=== PATIENT | female | born 1975 | race Asian ===

== ENCOUNTER 2017-06-04 19:24 | Emergency (ER) | payer MEDICAID ==
[~2017-06-04] VITALS: Ht 157.5 cm; Wt 70.0 kg
[2017-06-04 19:26] VITALS: Ht 157.5 cm; Wt 70.0 kg
[2017-06-04] MEDS ORDERED: SOD CHLORIDE 0.9% 1,000 ML IV STA (19:33)
[2017-06-04] MEDS ORDERED: LORAZEPAM 2 MG INJ IV ONE (20:00)
[2017-06-04 20:02] LABS: BASOPHIL # 0.1 10^3/ul (0.0-0.1); BASOPHILS % 0.6 % (0.0-2.0); EOSINOPHILS # 0.1 10^3/ul (0.0-0.5); HEMATOCRIT 34.2 % (37.0-47.0); HEMOGLOBIN 10.5 g/dl (12.0-16.0); LYMPHOCYTES # 1.8 10^3/ul (0.8-2.9); LYMPHOCYTES % 21.3 % (15.0-51.0); MEAN CORPUSCULAR HEMOGLOBIN 23.6 pg (29.0-33.0); MEAN CORPUSCULAR HGB CONC 30.7 g/dl (32.0-37.0); MEAN CORPUSCULAR VOLUME 76.9 fl (82.0-101.0); MEAN PLATELET VOLUME 9.7 fl (7.4-10.4); MONOCYTE # 0.7 10^3/ul (0.3-0.9); MONOCYTES % 8.5 % (0.0-11.0); NEUTROPHIL # 5.6 10^3/ul (1.6-7.5); NEUTROPHILS % 67.9 % (39.0-77.0); PLATELET COUNT 307 10^3/UL (140-415); RED BLOOD COUNT 4.45 10^6/ul (4.20-5.40); RED CELL DISTRIBUTION WIDTH 13.7 % (11.5-14.5); WHITE BLOOD COUNT 8.3 10^3/ul (4.8-10.8)
[2017-06-04 20:22] LABS: ALANINE AMINOTRANSFERASE 39 IU/L (13-69); ALBUMIN 4.1 g/dl (3.3-4.9); ALBUMIN/GLOBULIN RATIO 1.05; ALKALINE PHOSPHATASE 81 IU/L (42-121); ANION GAP 12 (8-16); ASPARTATE AMINO TRANSFERASE 26 IU/L (15-46); BLOOD UREA NITROGEN 10 mg/dl (7-20); CALCIUM 9.7 mg/dl (8.4-10.2); CARBON DIOXIDE 26 mmol/L (21-31); CHLORIDE 104 mmol/L (97-110); CREATININE 0.67 mg/dl (0.44-1.00); GLUCOSE 173 mg/dl (70-220); POTASSIUM 3.7 mmol/L (3.5-5.1); SODIUM 138 mmol/L (135-144)
[2017-06-04 20:34] LABS: TROPONIN-I < 0.012 ng/ml (0.00-0.12)
[2017-06-04 20:54] VITALS: BP 125/79; PULSE 81; RESP 20; TEMP 98.7
--- NOTE | 2017-06-04 22:44 | ERD ---
ER Documentation Chief Complaint Date/Time DATE: 06/04/17 TIME: 22:40 Chief Complaint PALPITATIONS HPI 41-year-old woman brought in as a code green after visiting her upstairs in the hospital. She complained of palpitations as well as feeling very anxious. Patient does have a history of anxiety disorder as well as mitral valve prolapse and previous palpitations. She denies loss of consciousness, no chest pain or shortness of breath, no fevers or chills, no calf or leg swelling, no suicidal homicidal ideation ROS All systems reviewed and are negative except as per history of present illness. Allergies Allergies: Coded Allergies: No Known Allergy (Unverified , 06/04/17) PMhx/Soc Anxiety disorder, MVP History of Surgery: No Hx Respiratory Disorders: No Hx Cardiac Disorders: Yes (mitral valve prolapse, palpitations) Hx Psychiatric Problems: No Hx Miscellaneous Medical Probl: Yes (gerd, ovarian cysts, endomitriosis) Hx Alcohol Use: Yes Hx Substance Use: No Hx Tobacco Use: No Smoking Status: Former smoker FmHx Family History: No diabetes Physical Exam Vitals Vital Signs Date Time Temp Pulse Resp B/P Pulse Ox O2 Delivery O2 Flow Rate FiO2 06/04/17 20:54 98.7 81 20 125/79 100 Room Air 06/04/17 19:30 98.7 90 20 123/89 94 Room Air 06/04/17 19:26 98.7 86 20 130/115 96 Physical Exam GENERAL: Well-developed, well-nourished, well-hydrated, anxious HEENT: Moist mucous membranes, pink conjunctiva, no cervical spine tenderness or step-off deformities, no goiter, no jaundice or icterus, extraocular movements intact without pain. No submandibular induration, and no pharyngeal erythema NEURO: Alert and oriented 3, cranial nerves II through XII intact bilaterally, pupils equal round reactive to light, no focal deficits or facial asymmetry, sensation intact distally Strength 5/5 in upper and lower extremities bilaterally CARDIAC: Regular rate and rhythm, no murmurs rubs or gallops LUNGS: Clear bilaterally no wheezing crackles or stridor ABDOMEN: Soft nontender, no guarding, no rigidity, no rebound, no psoas sign no obturator sign. Normoactive bowel sounds SKIN: Warm and dry to touch, no abrasions, contusions, or hematomas, no lacerations, no ecchymosis, no target lesions, and without ulcers EXTREMITIES: No clubbing cyanosis or edema, calves are bilaterally symmetrical, no Homans sign, no popliteal cord sign. Distal pulses equal and bilateral PSYCH: Anxious Result Diagram: 06/04/17194206/04/171942 Results 24 hrs Laboratory Tests Test 06/04/17 19:43 White Blood Count 8.310^3/ul Red Blood Count 4.4510^6/ul Hemoglobin 10.5g/dl Hematocrit 34.2% Mean Corpuscular Volume 76.9fl Mean Corpuscular Hemoglobin 23.6pg Mean Corpuscular Hemoglobin Concent 30.7g/dl Red Cell Distribution Width 13.7% Platelet Count 21676^3/UL Mean Platelet Volume 9.7fl Neutrophils % 67.9% Lymphocytes % 21.3% Monocytes % 8.5% Eosinophils % 1.0% Basophils % 0.6% Nucleated Red Blood Cells % 0.0/100WBC Neutrophils # 5.610^3/ul Lymphocytes # 1.810^3/ul Monocytes # 0.710^3/ul Eosinophils # 0.110^3/ul Basophils # 0.110^3/ul Nucleated Red Blood Cells # 0.010^3/ul Sodium Level 138mmol/L Potassium Level 3.7mmol/L Chloride Level 104mmol/L Carbon Dioxide Level 26mmol/L Anion Gap 12 Blood Urea Nitrogen 10mg/dl Creatinine 0.67mg/dl Glucose Level 173mg/dl Calcium Level 9.7mg/dl Total Bilirubin 0.0mg/dl Direct Bilirubin 0.00mg/dl Indirect Bilirubin 0.0mg/dl Aspartate Amino Transf (AST/SGOT) 26IU/L Alanine Aminotransferase (ALT/SGPT) 39IU/L Alkaline Phosphatase 81IU/L Troponin I < 0.012ng/ml Total Protein 8.0g/dl Albumin 4.1g/dl Globulin 3.90g/dl Albumin/Globulin Ratio 1.05 Lipase 165U/L Current Medications Medications (Trade) Dose Ordered Sig/[facility] Route PRN Reason Start Time Stop Time Status Last Admin Dose Admin Sodium Chloride (NS) 1,000 ml @ 1,000 mls/hr Q1H STAT IV 06/04/17 19:33 06/04/17 20:32 DC 06/04/17 20:17 Lorazepam (Ativan) 0.5 mg ONCE ONCE IV 06/04/17 20:00 06/04/17 20:01 DC 06/04/17 20:17 [facility] IV line was established 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 Patient was afebrile. EKG performed, read by me: 77 bpm, normal sinus rhythm, normal axis, no acute ST segment changes, narrow QRS complex, with good R-wave progression in precordial leads. I administered 1 L normal saline intravenously and lorazepam 0.5 mg IV 1 with good effect. One AP view of the chest performed, read by me reveals no acute infiltrates, normal mediastinum, sharp costophrenic and cardiac borders, no air under the diaphragm. Otherwise unremarkable chest x-ray. CBC and electrolytes are normal, liver function tests are normal, troponin was negative. Differential diagnoses considered, included but not limited to acute coronary syndrome, pulmonary embolism, aortic dissection, abdominal aortic aneurysm, sepsis, stroke, meningitis, encephalitis, pneumonia, appendicitis, cholecystitis , bowel obstruction, pyelonephritis, nephrolithiasis, cystitis, as well as metabolic, hematologic, and electrolyte abnormalities. As well as abscess, cellulitis, fractures, and dislocations. Patient feels much better at this time, and vital signs are normal, symptoms have improved. I did give strict instructions to return to the ED if symptoms continue or worsen, patient will otherwise follow-up with primary care physician. Patient understood instructions and agreed to plan. Disclaimer: Inadvertent spelling and grammatical errors are likely due to EHR/ dictation software use and do not reflect on the overall quality of patient care. Also, please note that the electronic time recorded on this note does not necessarily reflect the actual time of the patient encounter. Departure Diagnosis: Primary Impression: Palpitations Additional Impression: Anxiety in acute stress reaction Condition: Good Patient Instructions: Anxiety Reaction, Palpitations JADE DIAL MD Jun 04, 2017 22:44
== END 2017-06-04 20:54 | disposition home or self-care (01) ==
LOC: E/R 19:24
DX: R00.2 Palpitations (principal); F43.8 Other reactions to severe stress; Z87.891 Personal history of nicotine dependence
CPT/HCPCS: 36415; 80053; 83690; 84484; 85025; 93005; 96374; J2060; J7030; Z7502

== ENCOUNTER 2017-06-10 04:25 | Emergency (ER) | payer MEDICAID ==
[~2017-06-10] VITALS: Ht 162.6 cm; Wt 71.0 kg
[2017-06-10 04:29] VITALS: Ht 162.6 cm; Wt 71.0 kg
[2017-06-10 04:52] LABS: URINE BLOOD (Dip) POC Negative (NEGATIVE)
[2017-06-10 04:55] VITALS: BP 131/90; PULSE 79; RESP 16; TEMP 98
[2017-06-10] MEDS ORDERED: ONDANSETRON (ODT) 4 MG TAB ODT STA (04:55)
[2017-06-10] MEDS ORDERED: FAMOTIDINE 20 MG TAB PO STA (04:55)
[2017-06-10] MEDS ORDERED: DICYCLOMINE 10 MG CAP PO ONE (05:00)
--- NOTE | 2017-06-10 05:01 | ERD ---
ER Documentation Chief Complaint Date/Time DATE: 06/10/17 TIME: 04:58 Chief Complaint mid abd pain x 2 days HPI Patient is a 41-year-old female who presents with gradual onset, intermittent, poorly localized abdominal pain since yesterday. She reports that she made canned salmon with onions and left it on the counter while she was visiting a family member in the hospital, and when she returned it appeared spoiled, but she ate some of it anyways. Shortly after she started developing abdominal discomfort and nausea. She denies vomiting. She reports having loose stools. She denies blood or mucus in stool. She reports feeling slightly cold in the morning, but did not measure her temperature. She denies dysuria. She states that the pain comes and goes and is not always in the same location, but is felt diffusely. ROS All systems reviewed and are negative except as per history of present illness. Medications Home Meds Active Scripts Dicyclomine Hcl* (Bentyl*) 10 Mg Capsule, 10 MG PO TID, #20 CAP Prov:NICOLAS KINSEY MD 06/10/17 Reported Medications [place]-3/Dha/Epa/Fish Oil (Fish Oil 500 mg Softgel) 1 Each Capsule, 1 EACH PO, CAP 06/10/17 Cinnamon Bark (Cinnamon) 500 Mg Capsule, 500 MG PO, CAP 06/10/17 Turmeric (Curcumin) 1 Gm Powder, 1 GM MC 06/10/17 Turmeric (TURMERIC) 1 Gm Powder, 1 GM MC 06/10/17 Acetaminophen* (Acetaminophen*) 500 MG Extra Strength Tablet, 500 MG PO Q4H Y for PAIN AND OR ELEVATED TEMP, TAB 06/10/17 Aspirin Ec (Aspir 81) 81 Mg Tablet.dr, 81 MG PO DAILY, #30 TAB 06/10/17 Omeprazole* (Omeprazole*) 20 Mg Capsule.dr, 20 MG PO BID, #60 CAP 06/10/17 Escitalopram Oxalate* (Escitalopram Oxalate*) 10 Mg Tablet, 10 MG PO DAILY, #30 TAB 06/10/17 Propranolol Hcl* (Propranolol Hcl*) 10 Mg Tablet, 10 MG PO QID for PALPITATION, TAB 06/10/17 Discontinued Scripts Famotidine* (Famotidine*) 20 Mg Tablet, 20 MG PO DAILY, #30 TAB Prov:NICOLAS KINSEY MD 10/6/17 Allergies Allergies: Coded Allergies: No Known Allergy (Unverified , 06/10/17) PMhx/Soc Past medical history: GERD, Mitral valve prolapse, anxiety Past surgical history: Myomectomy, ovarian cystectomy Past surgical history social history: Denies current tobacco, alcohol or illicit drugs History of Surgery: No Hx Respiratory Disorders: No Hx Cardiac Disorders: Yes (mitral valve prolapse, palpitations) Hx Psychiatric Problems: No Hx Miscellaneous Medical Probl: Yes (gerd, ovarian cysts, endomitriosis) Hx Alcohol Use: Yes Hx Substance Use: No Hx Tobacco Use: No FmHx Noncontributory Physical Exam Vitals Vital Signs Date Time Temp Pulse Resp B/P Pulse Ox O2 Delivery O2 Flow Rate FiO2 06/10/17 04:55 98.0 79 16 131/90 98 Room Air 06/10/17 04:29 97.8 91 20 120/83 98 Physical Exam Const: Alert, no acute distress Head: Atraumatic Eyes: Normal Conjunctiva, No pallor, no icterus ENT: Normal External Ears, Nose and Mouth. Mucous membranes moist Neck: Full range of motion..~ No meningismus. Resp: Clear to auscultation bilaterally, No wheezes, rales Cardio: Regular rate and rhythm, no murmurs Abd: Soft, No focal tenderness, non distended. No rebound, no guarding. Slightly hyperactive bowel sounds Skin: No petechiae or rashes Back: No midline or flank tenderness Ext: No cyanosis, or edema Neur: Awake and alert Psych: Normal Mood and Affect Result Diagram: 06/10/1752506/10/17 05 Results 24 hrs Laboratory Tests Test 06/10/17 05:00 06/10/17 05:26 Urine Color STRAW Urine Clarity CLEAR Urine pH 6.0 Bedside Urine pH (LAB) 5.5 Urine Specific [place] 1.008 Bedside Urine Protein (LAB) Negative Bedside Urine Glucose (UA) Negative Urine Ketones NEGATIVEmg/dL Bedside Urine Ketones (LAB) Negative Bedside Urine Blood Negative Urine Nitrite NEGATIVEmg/dL Bedside Urine Nitrite (LAB) Negative Urine Bilirubin NEGATIVEmg/dL Urine Urobilinogen NEGATIVEmg/dL Urine Leukocyte Esterase NEGATIVELeu/ul Bedside Urine Leukocyte Esterase (L Negative Urine Hemoglobin NEGATIVEmg/dL Urine Glucose NEGATIVEmg/dL Urine Total Protein NEGATIVEmg/dl White Blood Count 8.610^3/ul Red Blood Count 4.6510^6/ul Hemoglobin 10.8g/dl Hematocrit 35.1% Mean Corpuscular Volume 75.5fl Mean Corpuscular Hemoglobin 23.2pg Mean Corpuscular Hemoglobin Concent 30.8g/dl Red Cell Distribution Width 14.2% Platelet Count 58454^3/UL Mean Platelet Volume 9.8fl Neutrophils % 65.8% Lymphocytes % 22.0% Monocytes % 10.1% Eosinophils % 1.2% Basophils % 0.3% Nucleated Red Blood Cells % 0.0/100WBC Neutrophils # 5.710^3/ul Lymphocytes # 1.910^3/ul Monocytes # 0.910^3/ul Eosinophils # 0.110^3/ul Basophils # 0.010^3/ul Nucleated Red Blood Cells # 0.010^3/ul Sodium Level 140mmol/L Potassium Level 4.0mmol/L Chloride Level 103mmol/L Carbon Dioxide Level 26mmol/L Anion Gap 15 Blood Urea Nitrogen 12mg/dl Creatinine 0.68mg/dl Glucose Level 112mg/dl Calcium Level 9.8mg/dl Total Bilirubin 0.1mg/dl Direct Bilirubin 0.00mg/dl Indirect Bilirubin 0.1mg/dl Aspartate Amino Transf (AST/SGOT) 25IU/L Alanine Aminotransferase (ALT/SGPT) 35IU/L Alkaline Phosphatase 53IU/L Total Protein 7.9g/dl Albumin 4.4g/dl Globulin 3.50g/dl Albumin/Globulin Ratio 1.25 Lipase 166U/L Serum HCG, Qualitative NEGATIVE Current Medications Medications (Trade) Dose Ordered Sig/[facility] Route PRN Reason Start Time Stop Time Status Last Admin Dose Admin Famotidine (Pepcid) 20 mg ONCE STAT PO 06/10/17 04:55 06/10/17 04:58 DC 06/10/17 05:46 Dicyclomine HCl (Bentyl) 10 mg ONCE ONCE PO 06/10/17 05:00 06/10/17 05:01 DC 06/10/17 05:46 Ondansetron HCl (Zofran Odt) 4 mg ONCE STAT ODT 06/10/17 04:55 06/10/17 04:58 DC Procedures/MDM MDM: Patient is a 41-year-old female who presents with abdominal discomfort and nausea after eating food that had been left out 2 days ago. She denies vomiting or diarrhea but reports loose stools. She has no focal tenderness on exam. She has no fever or leukocytosis. Her electrolytes are within normal limits. Her description of symptoms is consistent with functional pain. She had significant improvement with Pepcid and Bentyl. I will discharge her with prescription for Bentyl, but the patient is already taking omeprazole and is encouraged to continue taking this medication. She was advised to return to the ER for worsening pain, focal pain, fever, vomiting. She was advised to follow-up with her PMD if her symptoms do not resolve within the next 2-3 days. Departure Diagnosis: Primary Impression: Abdominal colic Additional Impression: Food poisoning Encounter type: initial encounter Injury intent: accidental or unintentional Qualified Code: T62.91XA - Food poisoning, accidental or unintentional, initial encounter Condition: NCIOLAS Maradiaga MD Jun 10, 2017 05:01
[2017-06-10] MEDS ORDERED: ESCI10TA48 PO (05:37)
[2017-06-10] MEDS ORDERED: OMEP20CA16 PO (05:37)
[2017-06-10] MEDS ORDERED: PROP10TA6 PO (05:37)
[2017-06-10] MEDS ORDERED: ASPI-535 PO (05:37)
[2017-06-10] MEDS ORDERED: CINN500C9 PO (05:43)
[2017-06-10] MEDS ORDERED: TURM1POW2 MC (05:43)
[2017-06-10] MEDS ORDERED: ACET-141 PO (05:43)
[2017-06-10] MEDS ORDERED: TURM1POW MC (05:43)
[2017-06-10] MEDS ORDERED: OMEG-144 PO (05:43)
[2017-06-10 06:03] LABS: BASOPHILS % 0.3 % (0.0-2.0); EOSINOPHILS # 0.1 10^3/ul (0.0-0.5); EOSINOPHILS % 1.2 % (0.0-7.0); HEMATOCRIT 35.1 % (37.0-47.0); HEMOGLOBIN 10.8 g/dl (12.0-16.0); LYMPHOCYTES # 1.9 10^3/ul (0.8-2.9); MEAN CORPUSCULAR HEMOGLOBIN 23.2 pg (29.0-33.0); MEAN CORPUSCULAR HGB CONC 30.8 g/dl (32.0-37.0); MEAN CORPUSCULAR VOLUME 75.5 fl (82.0-101.0); MEAN PLATELET VOLUME 9.8 fl (7.4-10.4); MONOCYTE # 0.9 10^3/ul (0.3-0.9); MONOCYTES % 10.1 % (0.0-11.0); NEUTROPHIL # 5.7 10^3/ul (1.6-7.5); NEUTROPHILS % 65.8 % (39.0-77.0); PLATELET COUNT 302 10^3/UL (140-415); RED BLOOD COUNT 4.65 10^6/ul (4.20-5.40); RED CELL DISTRIBUTION WIDTH 14.2 % (11.5-14.5); WHITE BLOOD COUNT 8.6 10^3/ul (4.8-10.8)
[2017-06-10 06:05] LABS: ADD UMIC NO; UR ASCORBIC ACID NEGATIVE (NEGATIVE); UR BILIRUBIN (Dip) NEGATIVE (NEGATIVE); UR BLOOD (Dip) NEGATIVE (NEGATIVE); UR CLARITY CLEAR (CLEAR); UR COLOR STRAW (YELLOW); UR GLUCOSE (Dip) NEGATIVE (NEGATIVE); UR KETONES (Dip) NEGATIVE (NEGATIVE); UR LEUKOCYTE ESTERASE (Dip) NEGATIVE Leu/ul (NEGATIVE); UR NITRITE (Dip) NEGATIVE (NEGATIVE); UR SPECIFIC GRAVITY (Dip) 1.008 (1.003-1.030); UR TOTAL PROTEIN (Dip) NEGATIVE (NEGATIVE); UR UROBILINOGEN (Dip) NEGATIVE (NEGATIVE)
[2017-06-10 06:26] LABS: ALBUMIN 4.4 g/dl (3.3-4.9); ALBUMIN/GLOBULIN RATIO 1.25; BILIRUBIN,INDIRECT 0.1 mg/dl (0-1.1); BILIRUBIN,TOTAL 0.1 mg/dl (0.2-1.3); CALCIUM 9.8 mg/dl (8.4-10.2); CREATININE 0.68 mg/dl (0.44-1.00); TOTAL PROTEIN 7.9 g/dl (6.1-8.1)
[2017-06-10] MEDS ORDERED: DICY10CA60 PO (06:33)
[2017-06-10] MEDS ORDERED: FAMO20TA18 PO (06:33)
== END 2017-06-10 06:59 | disposition home or self-care (01) ==
LOC: E/R 04:25
DX: T62.8X1A Toxic effect of other specified noxious substances eaten as food, accidental (unintentional), initial encounter (principal); R10.84 Generalized abdominal pain; Z79.82 Long term (current) use of aspirin
CPT/HCPCS: 80053; 81003; 83690; 84703; 85025; Z7502; Z7610; 99283